=== PATIENT | male | born 1980 | race Two or more races ===

== ENCOUNTER 2023-03-01 11:18 | Emergency (ER) | payer MEDICAID ==
[~2023-03-01] VITALS: Ht 170.2 cm; Wt 100.1 kg
[2023-03-01 11:58] VITALS: BP 128/74
[2023-03-01 12:40] LABS: Urine Bacteria NONE SEEN /hpf (None Seen); Urine Blood Negative /uL (Negative); Urine Mucus FEW (None Seen); Urine Specific Gravity 1.031 (1.001-1.035); Urine WBC <1 /hpf (0 - 3)
[2023-03-01] MEDS ORDERED: HYDR-4902 PO (14:25)
[2023-03-01] MEDS ORDERED: IBUP-1455 PO (14:25)
== END 2023-03-01 14:34 | disposition home or self-care (01) ==
LOC: ER 11:18
DX: S39.012A Strain of muscle, fascia and tendon of lower back, initial encounter (principal); E66.9 Obesity, unspecified; Z68.34 Body mass index [BMI] 34.0-34.9, adult; X58.XXXA Exposure to other specified factors, initial encounter; Y93.89 Activity, other specified; Y92.89 Other specified places as the place of occurrence of the external cause; Y99.8 Other external cause status
CPT/HCPCS: 72100; 81001

== ENCOUNTER 2023-11-13 08:56 | Emergency (ER) | payer MEDICAID, OTHER ==
[~2023-11-13] VITALS: Ht 162.6 cm; Wt 98.6 kg
[~2023-11-13 08:56] MED LIST: HYDR-4902 PO; IBUP-1455 PO
[2023-11-13 09:09] VITALS: BP 137/65; PULSE 83
[2023-11-13] MEDS: KETOROLAC TROMETH 30 MG/ML 1ML VIAL IM ONE (10:26)
[2023-11-13] MEDS: DexAMETHasone SOD PHOS 10MG/1ML VIAL INJ IM ONE (10:26)
[2023-11-13 11:13] VITALS: O2SAT 94
[2023-11-13] MEDS: IPRATROPIUM BROM 0.5 MG/2.5ML INH SOL NEB ONE (11:25)
[2023-11-13] MEDS: ALBUTEROL SULF 2.5 MG/0.5ML(0.5%) NEB SOLN NEB ONE (11:25)
[2023-11-13 11:30] VITALS: RESP 14; O2SAT 94
[2023-11-13] MEDS ORDERED: AZIT-81 PO (12:16)
[2023-11-13] MEDS ORDERED: METH4PAK PO (12:16)
[2023-11-13] MEDS ORDERED: ALBU108A5 IN (12:16)
[2023-11-13] MEDS ORDERED: PROM1SOL4 PO (12:16)
[2023-11-13] MEDS ORDERED: BENZ100C97 PO (12:16)
== END 2023-11-13 12:24 | disposition home or self-care (01) ==
LOC: ER 08:56
DX: J45.901 Unspecified asthma with (acute) exacerbation (principal)
CPT/HCPCS: 71045; 94640; 96372; 99284; J1100; J1885; J7644